=== PATIENT | male | born 1995 | race Caucasian/White ===

== ENCOUNTER 2019-12-20 17:49 | Emergency (ER) | payer OTHER, SELFPAY ==
[2019-12-20 18:23] VITALS: BP 130/77; PULSE 106; RESP 18; TEMP 37; O2SAT 98
[2019-12-20 21:01] VITALS: BP 129/88; PULSE 91; RESP 22; TEMP 36.6; O2SAT 97
--- NOTE | 2019-12-20 22:08 | ED.SKABFB ---
HPI - Skin/Abscess/Foreign Bdy General Chief complaint: Skin/Abscess/Foreign Body Stated complaint: tailbone pain Time Seen by Provider: 12/20/19 20:03 Source: patient Mode of arrival: ambulatory Limitations: no limitations History of Present Illness HPI narrative: Patient was emergency department by his friend for evaluation of suspected abscess to his tailbone. Patient reports pain and swelling to the area for the past 2 to 3 days. Patient states that he has had abscess in the area before 1 year ago and his symptoms are the same. Patient states that the area was drained and resolved without issue. He denies any fever, chills, nausea, vomiting, diarrhea or any other symptoms. Patient reports that he is allergic to penicillin. Patient denies known history of MRSA. Related Data Allergies Allergy/AdvReac Type Severity Reaction Status Date / Time Penicillins Allergy Intermediate hives Verified 12/20/19 20:48 Review of Systems Review of Systems: Narrative: CONSTITUTIONAL: Denies fever, chills, or sweats. EYES: Denies visual changes, redness, or discharge. ENT: Denies rhinorrhea, congestion, sore throat, or otalgia. CARDIOVASCULAR: Denies chest pain, palpitations, or edema. RESPIRATORY: Denies cough or dyspnea. GASTROINTESTINAL: Denies abdominal pain, nausea, vomiting, or diarrhea. GENITOURINARY: Denies dysuria or hematuria. SKIN: Reports abscess denies rash or itching. MUSCULOSKELETAL: Denies back pain, joint pain, or myalgia. NEUROLOGIC: Denies headache, numbness, dizziness, or weakness. PSYCHIATRIC: Denies anxiety or depression. [facility] Social History Social History Gender identity (if verbalized by the patient): Male Exam Narrative: Exam Narrative: GENERAL: Well-appearing, well-nourished, and in no acute distress. HEAD: Normocephalic, atraumatic. EYES: PERRLA and EOMI. ENT: Nares clear, no rhinorrhea or epistaxis. Mucous membranes moist. Oropharynx without tonsillar hypertrophy exudate or other lesions. CHEST: Clear to auscultation. No respiratory distress. ABDOMEN: Soft, nontender, nondistended, normal active bowel sounds. EXTREMITIES: Normal range of motion. No edema. SKIN: Small palpable abscess to the right inner gluteus. warm, dry, no rash. NEURO: No focal deficits. Alert and oriented x3. PSYCH: Normal mood and affect. Course Vital Signs Vital signs: Vital Signs Temperature 98.6 F 12/20/19 18:23 Pulse Rate 106 H 12/20/19 18:23 Respiratory Rate 18 12/20/19 18:23 Blood Pressure 130/77 12/20/19 18:23 Pulse Oximetry 98 12/20/19 18:23 Temperature 97.9 F 12/20/19 21:01 Pulse Rate 91 12/20/19 21:01 Respiratory Rate 22 H 12/20/19 21:01 Blood Pressure 129/88 12/20/19 21:01 Pulse Oximetry 97 12/20/19 21:01 Procedures Abscess I/D right buttock: Side (if applicable): right Local Anesthetic: lidocaine 1% Amount of anesthesia used (mL): 2 Technique: incised with #11 blade Irrigation: Yes Packing used?: iodoform I&D Results: Pus Complications: pain Abcess I&D Additional Comments: Area was drained and packed. Patient was very sensitive to pain so he was given a [place] at the conclusion of the drainage. Patient given wound care instructions follow-up instructions. MDM - Skin/Abscess/Foreign Bdy MDM Narrative Medical decision making narrative: Patient's abscess has been draining and flushed. Wound has been packed with iodoform gauze. Patient given wound care instructions and has been instructed to remove the packing in 48 to 72 hours. He has been instructed to perform sitz bath/apply warm moist compresses to encourage drainage. Patient was take Bactrim. Patient given general surgeon's contact information for follow-up. Patient directed to return to emergency department if he has any worsening or emergent symptoms. Discussed the importance of follow-up as abscesses in the gluteal area can become more complicated and require
[2019-12-20 22:49] VITALS: BP 135/63; PULSE 94; RESP 20; TEMP 36.3; O2SAT 99
== END 2019-12-20 22:49 | disposition home or self-care (01) ==
PROVIDERS: Emergency Provider Emergency Medicine
DX: L02.31 Cutaneous abscess of buttock (principal)
CPT/HCPCS: 10061; 99283; A9270

== ENCOUNTER 2020-01-19 14:10 | Emergency (ER) | payer OTHER, SELFPAY ==
[2020-01-19 14:26] VITALS: BP 163/98; PULSE 91; RESP 20; TEMP 36.7; O2SAT 100
[2020-01-19 14:52] LABS: Basophils Percent Auto 0.2 % (0.2-1.2); Hematocrit 44.4 % (42.0-52.0); Hemoglobin 15.7 g/dL (14.0-18.0); Immature Granulocyte Absolute 0.07 K/mm3 (0.00-0.031); Immature Granulocyte Percent A 0.4 % (0-0.5); Lymphocytes Absolute Auto 1.54 K/mm3 (0.9-3.2); Lymphocytes Percent Auto 9.6 % (18.3-44.2); Mean Corpuscular HGB Conc 35.4 g/dl (32-36); Mean Corpuscular Hemoglobin 31.6 pg (26-34); Mean Corpuscular Volume 89.3 fl (80-100); Mean Platelet Volume 9.7 fl (7.4-10.4); Monocytes Absolute Auto 0.6 K/mm3 (0.1-0.6); Monocytes Percent Auto 3.4 % (2.6-8.5); Neutrophils Absolute Auto 13.8 K/mm3 (1.3-6.7); Neutrophils Percent Auto 86.4 % (45.5-73.1); Platelet Count Result 303 k/mm3 (150-375); Red Blood Count 4.97 M/mm3 (4.6-6.20); Red Cell Distribution Width 12.6 % (11.5-14.5)
[2020-01-19 14:59] LABS: Alanine Aminotransferase 18 U/L (4-50); Albumin Level 4.9 g/dL (3.5-5.1); Alkaline Phosphatase 79 U/L (38-126); Anion Gap 11 mmol/L (8-16); Aspartate Amino Transferase 22 U/L (17-59); Bilirubin,Total 0.6 mg/dL (0.2-1.3); Blood Urea Nitrogen 11 mg/dL (9-20); Calcium 9.6 mg/dL (8.4-10.2); Carbon Dioxide 27 mmol/L (22-30); Chloride 102 mmol/L (98-107); Estimated CRCL calculation 150 ml/min; Estimated Glomerular Filt Rate > 60; Glucose 146 mg/dL (75-110); Lipase 16 U/L (23-300); Sodium 140 mmol/L (137-145)
--- NOTE | 2020-01-19 16:17 | PC.NURSE ---
Pt outside smoking at this time
--- NOTE | 2020-01-19 16:58 | PC.NURSE ---
Pt called to go back to a room, did not answer
== END 2020-01-19 16:23 | disposition left against medical advice (07) ==
PROVIDERS: Emergency Provider Emergency Medicine
DX: R10.9 Unspecified abdominal pain (principal)
CPT/HCPCS: 36415; 80053; 83690; 85025; 99199

== ENCOUNTER 2020-02-11 08:54 | Emergency (ER) | payer OTHER, SELFPAY ==
[2020-02-11 08:59] VITALS: BP 155/90; PULSE 109; RESP 18; TEMP 36.6; O2SAT 100
[2020-02-11] MEDS: HYDROcodone/acetaminophen (*CRX) 5-325 MG TABLET 1 TAB PO (09:27)
--- NOTE | 2020-02-11 09:42 | ED.EYEPROB ---
HPI - Eye Problem General Chief complaint: Eye Problems Stated complaint: Right Eye Time Seen by Provider: 02/11/20 09:06 History of Present Illness HPI Narrative: Patient is a 24-year-old male who presents ER with swelling around the left eye. Patient reports is been increasing over the last 2 days. No real tearing. He has had some eye drainage that is chronic for him. No runny nose/sore throat/cough. No flashers or floaters. No change in vision. Patient also has a firm area to the left cheek consistent with potentially infected gland. Related Data Home Medications Medication Instructions Recorded Confirmed No Home Medications 02/11/20 02/11/20 Allergies Allergy/AdvReac Type Severity Reaction Status Date / Time Penicillins Allergy Intermediate hives Verified 02/11/20 09:04 Review of Systems Constitutional: Constitutional: Denies chills and Denies fever(s) Eyes: Eyes: Denies change in vision and Denies photophobia ENT: Denies nasal congestion and Denies sore throat PMFSH Past Medical History Medical History (Updated 02/11/20 @ 10:10 by Jac Valenzuela MD) Healthy adult male Surgical History Surgical History (Updated 02/11/20 @ 10:08 by Jac Valenzuela MD) No history of previous surgery Social History Social History (Updated 02/11/20 @ 10:08 by Jac Valenzuela MD) Smoking status: Current every day smoker Gender identity (if verbalized by the patient): Male Exam Narrative: Exam Narrative: GENERAL: Well-appearing, well-nourished, and in no acute distress. HEAD: Normocephalic, atraumatic. EYES: PERRL and EOMI. normal appearing conjunctiva. Slight edema to the lower and upper lid laterally. SKIN: Warm, dry, no rash. Area of induration left cheek with slight superficial skin irritation. Reflects infectious process. NEURO: N Alert and oriented x3. PSYCH: Normal mood and affect. Course Course Emergency Course: Instructed to use warm compresses and apply Bactroban and take oral Keflex. Discharge home. Vital Signs Vital signs: Vital Signs Temperature 98 F 02/11/20 08:59 Pulse Rate 109 H 02/11/20 08:59 Respiratory Rate 18 02/11/20 08:59 Blood Pressure 155/90 H 11/07/20 08:59 Pulse Oximetry 100 02/11/20 08:59 Temperature 98 F 02/11/20 09:57 Pulse Rate 109 H 02/11/20 08:59 Respiratory Rate 18 02/11/20 08:59 Blood Pressure 155/90 H 02/11/20 08:59 Pulse Oximetry 100 02/11/20 08:59 Discharge Plan Discharge Clinical Impression: Cellulitis Patient Disposition: Home, Self-Care Condition: Stable Instructions: Antibiotic Form, Cellulitis (ED) Additional Instructions: Return the ER if you have worsening swelling, you cannot see, you have severe tenderness to your face, you have additional concerns. Apply warm compresses to your face to help encourage potential drainage from an infected gland. Prescriptions: New cephalexin [Keflex] 500 mg capsule 500 mg PO Q12H Qty: 14 RF: 0 mupirocin 2 % ointment 1 applic topical TID Qty: 15 RF: 0 No Action No Home Medications RF: 0 Follow-up/Referrals: Davian Allen MD [Physician] - 1 Week PHYSICIAN,OPTICIAN APPRENTICE DISPENSING [Primary Care Provider] - Stand Alone Forms: Work/School Release IP
[2020-02-11 09:57] VITALS: TEMP 36.6
== END 2020-02-11 10:18 | disposition home or self-care (01) ==
PROVIDERS: Emergency Provider Emergency Medicine
DX: L03.211 Cellulitis of face (principal); F17.200 Nicotine dependence, unspecified, uncomplicated
CPT/HCPCS: 99283; A9270

== ENCOUNTER 2020-04-22 21:41 | Emergency (ER) | payer OTHER, SELFPAY ==
[2020-04-22 21:43] VITALS: BP 137/88; PULSE 89; RESP 20; TEMP 36.3; O2SAT 99
--- NOTE | 2020-04-22 22:10 | WC.ED.TRAUMA ---
HPI - Trauma General Chief Complaint: Extremity Injury, Upper Stated Complaint: nail problem Time Seen by Provider: 04/22/20 21:46 Source: patient Mode of arrival: ambulatory Limitations: no limitations History of Present Illness HPI narrative: A 24-year-old male presents to the emergency department after getting involved in an accident while trying to split up a fight between his dog. Patient states that his thumb got caught on the kennel and somehow his nail got ripped off. Patient does endorse an exquisite amount of pain at the right thumbnail. He denies any other injuries. Related Data Home Medications Medication Instructions Recorded Confirmed No Home Medications 02/11/20 02/11/20 Allergies Allergy/AdvReac Type Severity Reaction Status Date / Time Penicillins Allergy Intermediate hives Verified 02/11/20 09:04 Review of Systems Review of Systems: Narrative: CONSTITUTIONAL: Denies fever, chills, or sweats. EYES: Denies visual changes, redness, or discharge. ENT: Denies rhinorrhea, congestion, sore throat, or otalgia. CARDIOVASCULAR: Denies chest pain, palpitations, or edema. RESPIRATORY: Denies cough or dyspnea. GASTROINTESTINAL: Denies abdominal pain, nausea, vomiting, or diarrhea. GENITOURINARY: Denies dysuria or hematuria. SKIN: Denies rash or itching. MUSCULOSKELETAL: Denies back pain, joint pain, or myalgia. Endorses significant pain at the right thumb NEUROLOGIC: Denies headache, numbness, dizziness, or weakness. PSYCHIATRIC: Denies anxiety or depression. [facility] Past Medical History Medical History Healthy adult male Surgical History Surgical History No history of previous surgery Social History Social History Smoking status: Current every day smoker Gender identity (if verbalized by the patient): Male Exam Narrative: Exam Narrative: GENERAL: Well-appearing, well-nourished, and in no acute distress. HEAD: Normocephalic, atraumatic. EYES: PERRLA and EOMI. ENT: Nares clear, no rhinorrhea or epistaxis. Mucous membranes moist. Oropharynx without tonsillar hypertrophy exudate or other lesions. Bilateral TMs pearly pemberton nonbulging NECK: Supple. No adenopathy or masses. No carotid bruits or JVD CHEST: Clear to auscultation. No respiratory distress. No wheezes rales or rhonchi HEART: Regular rate and rhythm. No murmur heard. Normal peripheral pulses. ABDOMEN: Soft, nontender, nondistended, normal active bowel sounds. EXTREMITIES: Normal range of motion. No edema. Avulsion injury of the right thumbnail, still mostly intact. SKIN: Warm, dry, no rash. NEURO: No focal deficits. Alert and oriented x3. PSYCH: Normal mood and affect. Course Vital Signs Vital signs: Vital Signs Temperature 36.3 C L 04/22/20 21:43 Pulse Rate 89 04/22/20 21:43 Respiratory Rate 20 04/22/20 21:43 Blood Pressure 137/88 04/22/20 21:43 Pulse Oximetry 99 04/22/20 21:43 Temperature 36.3 C L 04/22/20 21:43 Pulse Rate 89 04/22/20 21:43 Respiratory Rate 20 04/22/20 21:43 Blood Pressure 137/88 04/22/20 21:43 Pulse Oximetry 99 04/22/20 21:43 MDM - Trauma MDM Narrative Medical decision making narrative: In brief this is a 24-year-old who came in with a nail avulsion injury. Trephination of the nail bed did occur with little to no drainage. Surgicel was placed onto the wound followed by a nonadherent packing and Kerlix. Patient was given supplies to tender this at home. Discharge Plan Discharge Clinical Impression: Avulsion of nail Patient Disposition: Home, Self-Care Condition: Improved Instructions: Antibiotic Form, Nail Avulsion (ED) Prescriptions: No Action No Home Medications RF: 0 cephalexin [Keflex] 500 mg capsule 500 mg PO Q12H Qty: 14 RF: 0 mupirocin 2 % ointment 1 applic topic
[2020-04-22] MEDS: HYDROcodone/acetaminophen (*CRX) 5-325 MG TABLET 1 TAB PO (22:19)
== END 2020-04-22 22:26 | disposition home or self-care (01) ==
PROVIDERS: Emergency Provider Emergency Medicine
DX: S61.101A Unspecified open wound of right thumb with damage to nail, initial encounter (principal); F17.200 Nicotine dependence, unspecified, uncomplicated; W23.1XXA Caught, crushed, jammed, or pinched between stationary objects, initial encounter
CPT/HCPCS: 12001; 99283; A9270

== ENCOUNTER 2020-09-01 22:16 | Emergency (ER) | payer OTHER, SELFPAY ==
[2020-09-01 22:19] VITALS: BP 127/89; PULSE 94; RESP 17; TEMP 35.6; O2SAT 100
--- NOTE | 2020-09-01 23:07 | ED.SKABFB ---
HPI - Skin/Abscess/Foreign Bdy General Chief complaint: Skin/Abscess/Foreign Body Stated complaint: poss abcess Time Seen by Provider: 09/01/20 22:22 History of Present Illness HPI narrative: Patient is a 25-year-old male who presents ER with pain over his buttock. Has history of pilonidal cyst. Dull pain over the last 24 hours in the same spot. No fevers or chills or sweats. No drainage. No known trauma. Began taking Keflex when the pain started. Related Data Allergies Allergy/AdvReac Type Severity Reaction Status Date / Time Penicillins Allergy Intermediate hives Verified 09/01/20 22:17 Review of Systems Constitutional: Constitutional: Denies chills and Denies fever(s) Gastrointestinal: Gastrointestinal: Denies abdominal pain, Denies constipation, Denies nausea and Denies vomiting Integumentary/Breasts: Comments: Bilateral abscess PMFSH Past Medical History Medical History Healthy adult male Surgical History Surgical History No history of previous surgery Social History Social History Smoking status: Current every day smoker Gender identity (if verbalized by the patient): Male Exam Narrative: Exam Narrative: GENERAL: Well-appearing, well-nourished, and in no acute distress. HEAD: Normocephalic, atraumatic. EXTREMITIES: Normal range of motion. No edema. SKIN: Warm, dry, no rash. Pilonidal cyst at the gluteal cleft without surrounding cellulitis. NEURO: No focal deficits. Alert and oriented x3. PSYCH: Normal mood and affect. Course Course Emergency Course: We will have patient finish home Keflex and will give him a few additional days. Follow-up with general surgery for cyst excision. Vital Signs Vital signs: Vital Signs Temperature 96.1 F L 09/01/20 22:19 Pulse Rate 94 09/01/20 22:19 Respiratory Rate 17 09/01/20 22:19 Blood Pressure 127/89 09/01/20 22:19 Pulse Oximetry 100 09/01/20 22:19 Temperature 96.1 F L 09/01/20 22:19 Pulse Rate 94 09/01/20 22:19 Respiratory Rate 17 09/01/20 22:19 Blood Pressure 127/89 09/01/20 22:19 Pulse Oximetry 100 09/01/20 22:19 Procedures Abscess I/D pilonidal cyst: Date of Incision: 09/01/20 Time of Incision: 23:00 Local Anesthetic: lidocaine 1% and with epi Amount of anesthesia used (mL): 6 Technique: incised with #11 blade Irrigation: No Packing used?: iodoform I&D Results: Pus Discharge Plan Discharge Clinical Impression: Chronic recurrent pilonidal cyst Patient Disposition: Home, Self-Care Condition: Stable Instructions: Antibiotic Form, Pilonidal Cyst (ED), Abscess (ED) Additional Instructions: Return to the ER if you have fever over 100.4 ?F, you have increased pain, you cannot keep down food or water. Remove your packing in 2 days. Prescriptions: New hydrocodone-acetaminophen 5-325 mg tablet 1 tablet PO Q6H PRN (Reason: pain) Qty: 14 RF: 0 cephalexin 500 mg capsule 500 mg PO Q12H Qty: 10 RF: 0 Follow-up/Referrals: Cathie Chang MD [Physician] - 1 Week PHYSICIAN,AIRCRAFT INSTRUMENT REPAIRER [Primary Care Provider] -
[2020-09-01 23:38] VITALS: BP 121/76; PULSE 78; RESP 16; TEMP 36.7; O2SAT 99
== END 2020-09-01 23:38 | disposition home or self-care (01) ==
PROVIDERS: Emergency Provider Emergency Medicine
DX: L05.91 Pilonidal cyst without abscess (principal); F17.200 Nicotine dependence, unspecified, uncomplicated
CPT/HCPCS: 10080; 99283

== ENCOUNTER 2020-11-24 00:05 | Emergency (ER) | payer OTHER, SELFPAY ==
[2020-11-24 00:08] VITALS: BP 141/86; PULSE 77; RESP 16; TEMP 36.3; O2SAT 99
[2020-11-24] MEDS: ERYTHROMYCIN OPHTH OINTMENT 1 GM TUBE 1 APPLIC LEFT EYE (03:07)
--- NOTE | 2020-11-24 04:01 | ED.EYEPROB ---
HPI - Eye Problem General Chief complaint: Eye Problems Stated complaint: L eye foreign body Time Seen by Provider: 11/24/20 02:03 History of Present Illness HPI Narrative: Patient is a 25-year-old male who presents ER with left eye pain. Reports symptoms began just prior to arrival. Feels like when he has had a foreign body in his eye previously. He thinks he sees something over his left cornea. Reports tearing and blurred vision. 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 He reports ever since previous foreign body he always wears eye protection. Related Data Allergies Allergy/AdvReac Type Severity Reaction Status Date / Time Penicillins Allergy Intermediate hives Verified 11/24/20 01:59 Review of Systems Eyes: Comments: Left eye pain, foreign body sensation, blurred vision, tearing. ENT: Denies nasal congestion and Denies sore throat Gastrointestinal: Gastrointestinal: Denies nausea and Denies vomiting [facility] Past Medical History Medical History Healthy adult male Surgical History Surgical History No history of previous surgery Social History Social History Smoking status: Current every day smoker Gender identity (if verbalized by the patient): Male Exam Narrative: GENERAL: Well-appearing, well-nourished, and in no acute distress. HEAD: Normocephalic, atraumatic. EYES: PERRL and EOMI. foreign body in the left cornea at the 9 o'clock position. Removed with 18-gauge. Rust ring remains. Eyelid eversion performed and no foreign body noted. ENT: Mucous membranes moist. NEURO: Alert and oriented x3. PSYCH: Normal mood and affect. Course Course Emergency Course: Vision normalized after foreign body removal. Recommend follow-up with ophthalmology for further evaluation and removal restroom. Patient verbalized understanding of this. Provided with erythromycin ophthalmic and educated on its use. Vital Signs Vital signs: Vital Signs Temperature 97.4 F L 11/24/20 00:08 Pulse Rate 77 11/24/20 00:08 Respiratory Rate 16 11/24/20 00:08 Blood Pressure 141/86 H 11/24/20 00:08 Pulse Oximetry 99 11/24/20 00:08 Temperature 97.4 F L 11/24/20 00:08 Pulse Rate 82 11/24/20 04:20 Respiratory Rate 16 11/24/20 04:20 Blood Pressure 135/80 11/24/20 04:20 Pulse Oximetry 100 11/24/20 04:20 Discharge Plan Discharge Clinical Impression: Acute foreign body of left cornea, Corneal rust ring of left eye Patient Disposition: Home, Self-Care Condition: Stable Instructions: Antibiotic Form, Corneal Abrasion (DC), Eye Foreign Body (ED) Additional Instructions: Contact an eye doctor for further treatment evaluation. You have a small rust ring left over from the removal of a metallic foreign body. You have been given erythromycin ophthalmic to help prevent infection. Use this every 6 hours in your left eye. ER if you are worsening pain in your eye, you cannot see, you have thick discharge from your eye, or you have other concerns. Prescriptions: New erythromycin 5 mg/gram (0.5 %) ointment 0.5 inch LEFT EYE QID Qty: 3.5 RF: 0 hydrocodone-acetaminophen 5-325 mg tablet 1 tablet PO Q6H PRN (Reason: pain) Qty: 8 RF: 0 No Action hydrocodone-acetaminophen 5-325 mg tablet 1 tablet PO Q6H PRN (Reason: pain) Qty: 14 RF: 0 cephalexin 500 mg capsule 500 mg PO Q12H Qty: 10 RF: 0 Follow-up/Referrals: PHYSICIAN,SOURCING ASSISTANT [Primary Care Provider] -
[2020-11-24 04:20] VITALS: BP 135/80; PULSE 82; RESP 16; O2SAT 100
== END 2020-11-24 04:15 | disposition home or self-care (01) ==
PROVIDERS: Emergency Provider Emergency Medicine
DX: T15.02XA Foreign body in cornea, left eye, initial encounter (principal); F17.200 Nicotine dependence, unspecified, uncomplicated
CPT/HCPCS: 65220; 99283; A9270

== ENCOUNTER 2021-03-03 08:44 | Emergency (ER) | payer OTHER, SELFPAY ==
[2021-03-03 09:00] VITALS: BP 118/75; PULSE 88; RESP 16; TEMP 36.6; O2SAT 98
--- NOTE | 2021-03-03 09:58 | ED.EYEPROB ---
HPI - Eye Problem General Chief complaint: Eye Problems Stated complaint: FB in eye Source: patient Mode of arrival: ambulatory Limitations: no limitations History of Present Illness HPI Narrative: Possible foreign body right thigh yesterday chief complaint: foreign body Related Data Allergies Allergy/AdvReac Type Severity Reaction Status Date / Time Penicillins Allergy Intermediate hives Verified 11/24/20 01:59 Review of Systems Review of Systems: CONSTITUTIONAL: Denies fever, chills, or sweats. EYES: Denies visual changes, redness, or discharge. ENT: Denies rhinorrhea, congestion, sore throat, or otalgia. CARDIOVASCULAR: Denies chest pain, palpitations, or edema. RESPIRATORY: Denies cough or dyspnea. GASTROINTESTINAL: Denies abdominal pain, nausea, vomiting, or diarrhea. GENITOURINARY: Denies dysuria or hematuria. SKIN: Denies rash or itching. MUSCULOSKELETAL: Denies back pain, joint pain, or myalgia. NEUROLOGIC: Denies headache, numbness, or weakness. PSYCHIATRIC: Denies anxiety or depression. PMFSH Past Medical History Medical History Healthy adult male Surgical History Surgical History No history of previous surgery Social History Social History Smoking status: Current every day smoker Gender identity (if verbalized by the patient): Male Exam Narrative: General appearance: Well-developed, well-nourished Skin: Normal color Head: Normocephalic, nontraumatic Eyes: Clear conjunctiva, a tiny foreign body at the cornea. ENT: Oropharynx normal, ears normal, nose normal Neck: Supple, nontender Chest and respiratory: Airway patent, no respiratory distress, no accessory muscle use Heart: Regular rate/rhythm Neurologic: Alert and oriented ?3, RENAL DIETITIAN is normal as tested, no gross motor deficit Course Course Emergency Course: Stable Vital Signs Vital signs: Vital Signs Temperature 36.6 C 03/03/21 09:00 Pulse Rate 88 03/03/21 09:00 Respiratory Rate 16 03/03/21 09:00 Blood Pressure 118/75 03/03/21 09:00 Pulse Oximetry 98 03/03/21 09:00 Temperature 36.6 C 03/03/21 09:00 Pulse Rate 88 03/03/21 09:00 Respiratory Rate 16 03/03/21 09:00 Blood Pressure 118/75 03/03/21 09:00 Pulse Oximetry 98 03/03/21 09:00 Procedures FB Removal Eye Foreign Body #1: Foreign Body Removal Date: 03/03/21 Foreign Body Removal Time: 10:17 Time Out performed: Yes Location: eye (R) Topical anesthetic used: tetracaine Foreign body: other (Not sure) Evidence of corneal penetration: No Technique: cotton tip swab and needle Procedure performed under: direct visualization with magnification Post-procedure medication: ophthalmic antibiotic Patient tolerated procedure: well Foreign Body Removal Narrative: Less than 1 mm foreign body removed completely, was superficial, nothing under the eyelids MDM - Eye Problem MDM Narrative Medical decision making narrative: Right eye foreign body Critical Care Time Critical Care Time Critical Care Time: No Discharge Plan Discharge Clinical Impression: Eye foreign body Qualifiers: Encounter type: subsequent encounter Laterality: right Qualified Code(s): T15.91XD - Foreign body on external eye, part unspecified, right eye, subsequent encounter Patient Disposition: Home, Self-Care Condition: Improved Instructions: Antibiotic Form, Eye Foreign Body (ED) Additional Instructions: Return if symptoms are worsening , call your family physician fo
== END 2021-03-03 10:16 | disposition home or self-care (01) ==
PROVIDERS: Emergency Provider Emergency Medicine
DX: T15.01XA Foreign body in cornea, right eye, initial encounter (principal)
CPT/HCPCS: 65220; 99283; A9270

== ENCOUNTER 2021-04-01 13:29 | Emergency (ER) | payer OTHER, SELFPAY ==
--- NOTE | ~2021-04-01 | XR_ITS ---
EXAMINATION: XR femur RT min 2V EXAM DATE: 04/01/2021 14:36 INDICATION: nail gun accident . TECHNIQUE: Right femur frontal and lateral projections of the proximal aspect, frontal and lateral pr ojections of the lower aspect for review. There is no prior study for comparison. FINDINGS: There is a nail with its distal half overlying the right femoral distal metaphysis on bot h frontal and lateral projections, may well be embedded in the bone. Skin is stented inward. No other radiopaque foreign bodies. IMPRESSION: Nail with tip probably embedded in the right femoral distal metaphysis. Reviewed, dictated and finalized at location B. N [employer] SUPERVISOR IMPRESSION: Nail with tip probably embedded in the right femoral distal metaph ysis.
[2021-04-01 13:42] VITALS: BP 156/104; PULSE 87; RESP 16; TEMP 37; O2SAT 99
[2021-04-01] MEDS: MORPHINE SULFATE INJ (*CRX) 10 MG/ML AMP 4 MG IM (14:26)
[2021-04-01 16:05] VITALS: BP 142/89; PULSE 89; RESP 16; O2SAT 97
[2021-04-01] MEDS: HYDROmorphone HCL INJ (*CRX) 1 MG/ML SYR 0.5 MG IV PUSH (16:09)
[2021-04-01] MEDS: ceFAZolin 2 GM/D5W 50 ML 2 GM/50 ML BAG IVPB (16:12)
--- NOTE | 2021-04-01 17:50 | P.CONOP_ITS ---
Assessment and Plan Assessment and plan (1) Foreign body: Status: Acute (2) Puncture wound of right thigh: Qualifiers: Encounter type: initial encounter Qualified Code(s): S71.131A - Puncture wound without foreign body, right thigh, initial encounter Code(s): S71.131A - Puncture wound without foreign body, right thigh, initial encounter Status: Acute Assessment and Plan: Acute foreign body penetrating injury with nail gun. Nail impaled the distal fe moral bone at the anteromedial aspect through the vastus medialis. I reviewed the images personally. 20 mL of 1% lidocaine injected for field block around the nail head. Vice associate director regulatory affairs applied to the nail head, and the nail removed with moderate force. A small amount of sunil jesustia material remained under the head of the nail. Patient tolerated the procedure well. Mild bloody drainage controlled with pressure dressing. Malcom bandage applied. Patient will be treated with oral antibiotics per the emergency room discretion. Follow up in 1-2 weeks in clinic. Symptoms and signs of infection reviewed with the patient. History of Present Illness HPI Consult date: 04/01/21 Chief complaint: nail in leg Narrative: Patient complains of focal pain at the distal medial thigh. Shot himself with a nail gun today. Attempted to remove on his own without success. Was wearing jeans. No other known contamination. Denies numbness tingling, or other associated symptoms. Review of Systems Review of Systems: Denies loss of consciousness. All systems reviewed & are unremarkable except as noted in HPI and below PMFSH Past Medical History Medical History Healthy adult male Surgical History Surgical History No history of previous surgery Social History Social History Smoking status: Current every day smoker Gender identity (if verbalized by the patient): Male Meds Home Medications and Allergies Allergies Allergy/AdvReac Type Severity Reaction Status Date / Time Penicillins Allergy Intermediate hives Verified 04/01/21 14:07 Vital Signs Vital Signs - 24 hr 04/01/21 13:42 04/01/21 16:05 Temperature 37.0 C Pulse Rate 87 89 Respiratory Rate 16 16 Blood Pressure 156/104 H 142/89 H Pulse Oximetry 99 97 Exam Narrative: Appears uncomfortable. Alert oriented x3. Vital signs stable. Unlabored breathing. Afebrile. Nail head visible tenting the skin downward at the area of the vastus medialis. No erythema, or drainage. Distal neurovascular status normal. No edema. Eyes: General: appearance normal, both eyes and all related structures Resp: Effort & Inspection: normal respiratory effort Neuro: Speech: normal speech Other: Wiggles toes well. Capillary refill brisk. Distal light touch sensation intact. Dorsalis pedis pulse palpable. Extrem: Other: No edema. Psych: Mental Status: mental status grossly normal Results Labs Labs: All other labs normal.
--- NOTE | 2021-04-01 17:54 | PM.OP ---
Procedure Note - Brief Procedure Note - Brief Date of procedure: 04/01/21 Pre-op diagnosis: nail in leg Post-op diagnosis: same Procedure performed: Removal of a nail impaled in the distal femur. Description of procedure: Area of the nail and skin prepared with Betadine. 20 mL of 1% lidocaine injected for field block around the nail head. Vice community association manager applied to the nail head, and the nail removed with moderate force. A small amount of sunil jesusita material remained under the head of the nail. The skin appeared clean. Patient tolerated the procedure well. Mild bloody drainage controlled with pressure dressing. Malcom bandage applied. Neurovascular status intact. Anesthesia: local Surgeon: Emrey Kennedy MD Estimated blood loss (mL): 2 Packing: No Pathology: none sent Complications: No immediate complications Condition: stable Disposition: other (discharge from E.D.)
--- NOTE | 2021-04-01 18:13 | ED.GENADULT ---
HPI - General Adult General Chief complaint: Skin/Abscess/Foreign Body Stated complaint: nail in leg Time Seen by Provider: 04/01/21 14:10 Source: patient Mode of arrival: ambulatory Limitations: no limitations History of Present Illness HPI narrative: Patient is 25-year-old male with chief complaint of nail injury to the distal aspect of his right femur that he sustained approximately 1 PM while using a nail gun. Patient reports that he has pain to the area. He reports radiating pain down his leg. Patient reports he is up-to-date on his Tdap. Patient denies any acute injuries or concerns. Patient is allergic to penicillin. Related Data Allergies Allergy/AdvReac Type Severity Reaction Status Date / Time Penicillins Allergy Intermediate hives Verified 04/01/21 14:07 Review of Systems Review of Systems: CONSTITUTIONAL: Denies fever, chills, or sweats. EYES: Denies visual changes, redness, or discharge. ENT: Denies rhinorrhea, congestion, sore throat, or otalgia. CARDIOVASCULAR: Denies chest pain, palpitations, or edema. RESPIRATORY: Denies cough or dyspnea. GASTROINTESTINAL: Denies abdominal pain, nausea, vomiting, or diarrhea. GENITOURINARY: Denies dysuria or hematuria. SKIN: Denies rash or itching. MUSCULOSKELETAL: Reports right thigh injury with foreign body denies back pain, joint pain, or myalgia. NEUROLOGIC: Denies headache, numbness, dizziness, or weakness. PSYCHIATRIC: Denies anxiety or depression. PMFSH Past Medical History Medical History Healthy adult male Surgical History Surgical History No history of previous surgery Social History Social History Smoking status: Current every day smoker Gender identity (if verbalized by the patient): Male Exam Narrative: GENERAL: Well-appearing, well-nourished,uncomfortable. Unkempt. HEAD: Normocephalic, atraumatic. EYES: PERRLA and EOMI. CHEST: Clear to auscultation. No respiratory distress. No wheezes rales or rhonchi HEART: Regular rate and rhythm. No murmur heard. Normal peripheral pulses. EXTREMITIES: Nail inbedded in distal right femur causing deep dimpling of the skin. Dirt noted around it. Cap refill and pulses noted distally. SKIN: Warm, dry, no rash. NEURO: No focal deficits. Alert and oriented x3. PSYCH: Anxious mood and affect. Course Vital Signs Vital signs: Vital Signs Temperature 98.6 F 04/01/21 13:42 Pulse Rate 87 04/01/21 13:42 Respiratory Rate 16 04/01/21 13:42 Blood Pressure 156/104 H 04/01/21 13:42 Pulse Oximetry 99 04/01/21 13:42 Temperature 98.6 F 04/01/21 13:42 Pulse Rate 89 04/01/21 16:05 Respiratory Rate 16 04/01/21 16:05 Blood Pressure 142/89 H 04/01/21 16:05 Pulse Oximetry 97 04/01/21 16:05 Medical Decision Making MDM Narrative Medical decision making narrative: Dr. Kennedy came to emergency department to remove nail from patient's femur. The nail appears to be removed in its entirety. Dr. Kennedy request the patient be put on antibiotic that will cover test due to the foreign body. Patient will be placed on Cipro due to his allergy to penicillins making Augmentin appropriate. Patient has had a pressure bandage and Malcom wrap applied to the wound site. He is not having profuse bleeding. Patient instructed to follow-up with Dr. Kennedy within 1 week. Patient instructed to return to emergency department if he has any worsening or emergent symptoms or signs of infection. Vital Signs Vital Signs: Vital Signs Temperature 98.6 F 04/01/21 13:42 Pulse Rate 87 04/01/21 13:42 Respiratory Rate 16 04/01/21 13:42 Blood Pressure 156/104 H 04/01/21 13:42 Pulse Oximetry 99 04/01/21 13:42 Temperature 98.6 F 04/01/21 13:42 Pulse Rate 89 04/01/21 16:05 Respiratory Rate 16 04/01/21 16:05 Blood Pressu
--- NOTE | 2021-04-04 11:26 | PC.NURSE ---
LATE ENTRY This note is being entered to document information to the patient's record. The following information was omitted on [04/01/21], by [MIRIAM Ng] [facility] START [address] END 2680.
== END 2021-04-01 17:45 | disposition home or self-care (01) ==
PROVIDERS: Emergency Provider Emergency Medicine
DX: S71.141A Puncture wound with foreign body, right thigh, initial encounter (principal); F17.200 Nicotine dependence, unspecified, uncomplicated; W29.4XXA Contact with nail gun, initial encounter
CPT/HCPCS: 11750; 73552; 96365; 96372; 96375; 99284; J0690; J1170; J2270

== ENCOUNTER 2021-09-24 20:38 | Emergency (ER) | payer OTHER, SELFPAY ==
--- NOTE | ~2021-09-24 | CT_ITS ---
EXAMINATION: CT brain wo con DATE: 09/24/2021 21:31 INDICATION: transmission fell on him . TECHNIQUE: Computed tomography (CT) of the head was performed without intravenous contrast. The mA wa s adjusted according to patient size. Iterative reconstruction technique was employed. The dose-lengt h product was 605.33 mGy-cm. COMPARISON: None FINDINGS: No acute intracranial hemorrhage or extra-axial fluid collection. No hydrocephalus, mass, or herniation. No acute ischemic infarct. Unremarkable dural venous sinus attenuation. No acute osseous abnormality. Small left frontal scalp contusion. Frontal sinuses is not aerated. Under pneumatized bilateral mastoid air cells, with minimal left mast oid fluid, otherwise the aerated spaces are clear. IMPRESSION: No acute intracranial process. Reviewed, dictated and finalized at location K.
--- NOTE | ~2021-09-24 | XR_ITS ---
EXAM: XR hand RT min 3V DATE: 09/24/2021 21:26 HISTORY: transmission fell ON PATIENT . COMPARISON: None available. FINDINGS: Normal mineralization. No fracture or dislocation. No lytic or blastic lesion. Joint space s are maintained. No erosion or periosteal change. Soft tissue irregularity and debris over the right third digit at the level of the middle phalange. IMPRESSION: No acute osseous finding in the right hand. Right third digit laceration with debris. Reviewed, dictated and finalized at location K. IMPRESSION: No acute osseous finding in the right hand. Right third digit lacer ation with debris.
--- NOTE | ~2021-09-24 | CT_ITS ---
EXAMINATION: CT facial bones wo con DATE: 09/24/2021 21:32 INDICATION: transmission fell on him . TECHNIQUE: Computed tomography (CT) of the facial bones and maxillofacial region was performed withou t intravenous contrast. Automated exposure control and iterative reconstruction technique were employ ed. The dose-length product was 265.31 mGy-cm. COMPARISON: None. FINDINGS: Soft Tissues: Possible swelling over the anterior jaw, otherwise no significant superficial soft tis cb swelling. Facial bones: No acute fracture. No lytic or blastic process. Chronic leftward bowing and posterior spur at the osseous nasal septum. Eyes: The globes are intact. The soft tissue planes of the orbits are maintained. Paranasal Sinuses: Inferior bilateral maxillary mucosal thickening, with small retention cysts or po lyps. Mucosal thickening occludes the right ostiomeatal unit. Foreign Bodies: No radiopaque foreign bodies. Other Findings: Periodontal disease. IMPRESSION: No evidence of acute facial bone fracture. Reviewed, dictated and finalized at location K.
[2021-09-24 21:07] VITALS: BP 132/84; PULSE 93; RESP 16; TEMP 36.9; O2SAT 98
--- NOTE | 2021-09-25 01:51 | ED.WOUNDLAC ---
HPI - Wound/Laceration General Chief Complaint: Wound/Laceration <SRINIVASA Artis Last Filed: 09/25/21 04:11> Stated Complaint: lac to head right middle finger lac <SRINIVASA Artis Last Filed: 09/25/21 04:11> Time Seen by Provider: 09/25/21 01:44 <SRINIVASA Artis Last Filed: 09/25/21 04:11> History of Present Illness HPI narrative: Patient is a 26-year-old male who presents emergency department with a laceration to his right third digit and an abrasion to his forehead sustained earlier today. Patient was working under a car on the transmission and caught the car from falling on top of him with his hands. Since then he has complained of pain to the site and also notes that he has numbness to his fingertips on the right third digit with difficulty moving the finger. denies headache, loss of consciousness, visual changes, nausea, vomiting. <SRINIVASA Artis Last Filed: 09/25/21 04:11> Related Data Allergies/Adverse Reactions: Allergies Allergy/AdvReac Type Severity Reaction Status Date / Time Penicillins Allergy Intermediate hives Verified 09/24/21 21:10 <Tori Espana PA-C - Last Filed: 09/25/21 04:11> Review of Systems Review of Systems: Gen: Denies fevers or chills Eyes: Denies eye pain or visual change ENT: Denies congestion Respiratory: Denies shortness of breath or cough CV: Denies chest pain or palpitations GI: Denies abdominal pain nausea, emesis or diarrhea denies burning, urgency, frequency or hematuria Musculoskeletal: Denies back pain or muscle pain Neuro: Reports numbness to right third fingertip Skin: Reports laceration to right third digit and forehead. Except as documented, all other systems reviewed and negative <SRINIVASA Artis Last Filed: 09/25/21 04:11> PMFSH Past Medical History Medical History: Medical History Healthy adult male <Tori Bethel Espana PA-C - Last Filed: 09/25/21 04:11> Surgical History Surgical History: Surgical History No history of previous surgery <Tori Bethel Espana PA-C - Last Filed: 09/25/21 04:11> Social History Social History: Social History Smoking status: Current every day smoker Gender identity (if verbalized by the patient): Male <Tori Bethel Espana PA-C - Last Filed: 09/25/21 04:11> Exam Narrative: APPEARANCE: Well appearing, no pain in distress, well-nourished. Head: Normocephalic and atraumatic. EYES: PERRLA/EOMI, conjunctivae clear NOSE: No nasal drainage EARS: External ear normal in appearance THROAT: Oropharynx is clear. Mucous membranes are moist. NECK: Supple. No adenopathy, no masses. RESPIRATORY: Airway patent, respirations nonlabored. Clear to auscultation bilaterally, no rales, rhonchi, wheezing. CARDIOVASCULAR: Regular rate and rhythm without murmurs, rubs, or gallops. ABDOMINAL: Normoactive bowel sounds. Soft, nontender, nondistended. No rebound tenderness or guarding. MUSCULOSKELETAL: Brisk capillary refill distal to injury. Patient states he has no sensation over fingertip of right third digit. Unable to move tip of finger. NEURO: Normal speech. No focal neurologic deficits. SKIN: Patient has a 2 cm, deep, L-shaped irregular laceration to the palmar aspect of his right third digit just proximal to the DIP with no active bleeding. Wound inspected under direct bright light with no evidence of muscle tendon laceration. Hands are dirty and soiled with oil. PSYCHIATRIC: Normal affect/mood. <Tori Espana PA-C - Last Filed: 09/25/21 04:11> Course [employer]/PA Physician Supervision For this patient encounter, I reviewed the [employer]DER[employer] or PA documentation, treatment plan, and medical decision making <Sheldon Garces MD - Last Filed: 09/25/21
[2021-09-25 02:30] VITALS: BP 160/85; PULSE 72; RESP 18; O2SAT 99
[2021-09-25] MEDS: CEPHALEXIN 500 MG CAPSULE PO (03:39)
== END 2021-09-25 03:45 | disposition home or self-care (01) ==
LOC: ANHED 09-25 03:29
PROVIDERS: Emergency Provider Emergency Medicine
DX: S61.212A Laceration without foreign body of right middle finger without damage to nail, initial encounter (principal); F17.200 Nicotine dependence, unspecified, uncomplicated; S00.81XA Abrasion of other part of head, initial encounter; W26.8XXA Contact with other sharp object(s), not elsewhere classified, initial encounter
CPT/HCPCS: 12001; 70450; 70486; 73130; 99284; A9270

== ENCOUNTER 2022-01-15 16:44 | Emergency (ER) | payer OTHER, SELFPAY ==
--- NOTE | ~2022-01-15 | XR_ITS ---
EXAMINATION: XR chest 2V DATE: 01/15/2022 17:30 INDICATION: Cough and shortness of breath TECHNIQUE: PA and lateral views of the chest are obtained. COMPARISON: None available FINDINGS: The lungs are free of acute opacities. No pleural effusion or pneumothorax. The cardiomedia stinal silhouette is normal. There is mild thoracic spondylosis. IMPRESSION: 1. No acute cardiopulmonary abnormality. Reviewed, dictated and finalized at location A.
[2022-01-15 16:47] VITALS: BP 152/87; PULSE 98; RESP 20; TEMP 36.2; O2SAT 99
--- NOTE | 2022-01-15 17:27 | ED.GENADULT ---
HPI - General Adult General Chief complaint: Upper Respiratory Infection Stated complaint: uri symptoms since fri 11pm Time Seen by Provider: 01/15/22 16:51 History of Present Illness HPI narrative: 26-year-old male presents the emergency room for multiple complaints. Patient has been experiencing headache and diarrhea for 4days, that he states is progressively getting worse. States that he was seen at [place] emergency room 3 days ago and was diagnosed with upper respiratory infection. Patient states he has developed shortness of breath, wheezing, postnasal drip sinus congestion. Patient denies fever or body aches. Patient states that he has taken ibuprofen once since the onset of symptoms. Related Data Allergies Allergy/AdvReac Type Severity Reaction Status Date / Time Penicillins Allergy Intermediate hives Verified 09/24/21 21:10 Review of Systems Review of Systems: CONSTITUTIONAL: Denies fever, chills, or sweats. EYES: Denies visual changes, redness, or discharge. ENT: Reports rhinorrhea, congestion, sore throat, CARDIOVASCULAR: Denies chest pain, palpitations, or edema. RESPIRATORY: Reports cough or dyspnea. GASTROINTESTINAL: Reports diarrhea GENITOURINARY: Denies dysuria or hematuria. SKIN: Denies rash or itching. MUSCULOSKELETAL: Denies back pain, joint pain, or myalgia. NEUROLOGIC: Reports headache PSYCHIATRIC: Denies anxiety or depression. [facility] Past Medical History Medical History Healthy adult male Surgical History Surgical History No history of previous surgery Social History Social History Smoking status: Current every day smoker Gender identity (if verbalized by the patient): Male Exam Narrative: GENERAL: Well-appearing, well-nourished, no physical limitations, and in no acute distress. HEAD: Normocephalic, atraumatic. EYES: Conjunctivae normal, PERRLA and EOMI. ENT: External nose normal, Nares clear, no rhinorrhea or epistaxis. Mucous membranes moist. Oropharynx without tonsillar hypertrophy exudate or other lesions. External ears normal, bilateral TMs normal bilaterally NECK: Supple. No meningeal signs. No adenopathy or masses. No carotid bruits or JVD CHEST: Inspiratory wheezing HEART: Regular rate and rhythm. No murmur heard. Normal peripheral pulses. ABDOMEN: Soft, nontender, nondistended, normal active bowel sounds. EXTREMITIES: Normal range of motion. No edema. No clubbing or cyanosis SKIN: Warm, dry, no rash. No noted wounds NEURO: No focal deficits. Alert and oriented x3. MAEW. CN's II-XI intact bilaterally, normal gait PSYCH: Cooperative. Normal mood and affect. Course Vital Signs Vital signs: Vital Signs Temperature 36.2 C L 01/15/22 16:47 Pulse Rate 98 01/15/22 16:47 Respiratory Rate 20 01/15/22 16:47 Blood Pressure 152/87 H 01/15/22 16:47 Pulse Oximetry 99 01/15/22 16:47 Oxygen Delivery Room Air 01/15/22 16:47 Temperature 36.2 C L 01/15/22 16:47 Pulse Rate 98 01/15/22 17:32 Respiratory Rate 20 01/15/22 17:32 Blood Pressure 152/87 H 01/15/22 16:47 Pulse Oximetry 99 01/15/22 17:30 Oxygen Delivery Room Air 01/15/22 17:30 Medical Decision Making Vital Signs Vital Signs: Vital Signs Temperature 36.2 C L 01/15/22 16:47 Pulse Rate 98 01/15/22 16:47 Respiratory Rate 20 01/15/22 16:47 Blood Pressure 152/87 H 01/15/22 16:47 Pulse Oximetry 99 01/15/22 16:47 Oxygen Delivery Room Air 01/15/22 16:47 Temperature 36.2 C L 01/15/22 16:47 Pulse Rate 98 01/15/22 17:32 Respiratory Rate 20 01/15/22 17:32 Blood Pressure 152/87 H 01/15/22 16:47 Pulse Oximetry 99 01/15/22 17:30 Oxygen Delivery Room Air 01/15/22 17:30 Lab Data Result diagrams: 01/15/22 17:44 Labs: Lab Results 01/15/22 Range/Units 17:44 W
[2022-01-15 17:30] VITALS: O2SAT 99
[2022-01-15 17:32] VITALS: PULSE 98; RESP 20
[2022-01-15] MEDS: ALBUTEROL SULFATE NEB 2.5 MG/3 ML INH INHALATION (17:33)
[2022-01-15] MEDS: IPRATROPIUM BR 0.02% INH SOLN 0.5 MG/2.5 ML VIAL INHALATION (17:33)
[2022-01-15] MEDS: SODIUM CHLORIDE 0.9% IV 1,000 ML 999 ML IV CONT (17:41)
[2022-01-15] MEDS: KETOROLAC 30 MG/ML VIAL (*BKC) IV PUSH (17:42)
[2022-01-15 17:50] LABS: Basophils Percent Auto 0.1 % (0.2-1.2); Eosinophils Absolute Auto 0.2 K/mm3 (0-0.3); Eosinophils Percent Auto 2.2 % (0-4.4); Hematocrit 46.4 % (42.0-52.0); Hemoglobin 15.7 g/dL (14.0-18.0); Immature Granulocyte Absolute 0.03 K/mm3 (0.00-0.031); Immature Granulocyte Percent A 0.3 % (0-0.5); Lymphocytes Absolute Auto 2.72 K/mm3 (0.9-3.2); Lymphocytes Percent Auto 27.1 % (18.3-44.2); Mean Corpuscular HGB Conc 33.8 g/dl (32-36); Mean Corpuscular Hemoglobin 31.6 pg (26-34); Mean Corpuscular Volume 93.4 fl (80-100); Mean Platelet Volume 9.5 fl (7.4-10.4); Monocytes Absolute Auto 0.8 K/mm3 (0.1-0.6); Monocytes Percent Auto 8.1 % (2.6-8.5); Neutrophils Absolute Auto 6.3 K/mm3 (1.3-6.7); Neutrophils Percent Auto 62.2 % (45.5-73.1); Platelet Count Result 243 k/mm3 (150-375); Red Blood Count 4.97 M/mm3 (4.6-6.20); Red Cell Distribution Width 12.6 % (11.5-14.5); White Blood Count 10.1 K/mm3 (4.5-10.0)
[2022-01-15 19:00] VITALS: BP 118/66; PULSE 74; RESP 14; O2SAT 99
== END 2022-01-15 19:00 | disposition home or self-care (01) ==
PROVIDERS: Emergency Provider Nurse Practitioner Family
DX: J06.9 Acute upper respiratory infection, unspecified (principal); F17.200 Nicotine dependence, unspecified, uncomplicated
CPT/HCPCS: 36415; 71046; 85025; 94640; 96361; 96374; 96375; 99284; J1100; J1885; J7030

== ENCOUNTER 2024-07-27 08:33 | Outpatient (CLI) | payer OTHER, SELFPAY ==
--- OUTSIDE RECORDS SUMMARY | 2024-07-27 09:02 | XMS_ITS | Continuity of Care Document ---
Author Organization [facility] Address [address] [place] [address] Phone Care Team Providers Care Test Inspection Engineer Name Role Phone Worrell OD, Huseyin Unavailable Unavailable Advance Directives Directive Yes / No Effective Date File Name No Information Encounters Encounter Description Practice Location Reason(s) For Visit Diagnoses Date Provider Providers Copied on Encounter [facility], [address] [place], [place], [id number], [place] tel:[phone] No Information Mar-1 5-200 6 Worrell OD Huseyin. [address], [place], [address], [place]. tel:[phone] Family History Family Member Type Diagnosis Age At Onset No Information Payers Payer name Insurance type Covered green party ID Authoriza tion(s) Medicaid [facility] [id number] Social History Type Description Quantity Date Captured Comments Sex Male Smoking Status No Information Chief Complaint And Reason For Visit No Information Reason For Referral Reason For Referral No Information History Of Present Illness Encounter Date Complaint History Of Prese nt Illness No Information Functional Status Date Functional Assessmen t No Information Instructions Date Instruction Additional Infor mation No Information Assessments Type Assessment Date No Information Patient Care Teams Name Effective Dates (start - stop) Status Members No Information
[2024-07-27 09:06] LABS: Basophils Percent Auto 0.2 % (0.2-1.2); Eosinophils Absolute Auto 0.2 K/mm3 (0-0.3); Eosinophils Percent Auto 2.4 % (0-4.4); Hematocrit 46.3 % (42.0-52.0); Hemoglobin 15.3 g/dL (14.0-18.0); Immature Granulocyte Absolute 0.05 K/mm3 (0.00-0.031); Immature Granulocyte Percent A 0.5 % (0-0.5); Lymphocytes Absolute Auto 3.02 K/mm3 (0.9-3.2); Mean Corpuscular Hemoglobin 30.6 pg (26-34); Mean Corpuscular Volume 92.6 fl (80-100); Mean Platelet Volume 9.6 fl (7.4-10.4); Monocytes Absolute Auto 0.7 K/mm3 (0.1-0.6); Monocytes Percent Auto 7.4 % (2.6-8.5); Neutrophils Absolute Auto 5.7 K/mm3 (1.3-6.7); Neutrophils Percent Auto 58.5 % (45.5-73.1); Platelet Count Result 218 k/mm3 (150-375); Red Cell Distribution Width 12.7 % (11.5-14.5); White Blood Count 9.8 K/mm3 (4.5-10.0)
[2024-07-27 09:26] LABS: Alanine Aminotransferase 36 U/L (6-50); Albumin Level 4.2 g/dL (3.5-5.1); Alkaline Phosphatase 47 U/L (38-126); Anion Gap 6 mmol/L (4-12); Aspartate Amino Transferase 33 U/L (17-59); Bilirubin,Total 0.9 mg/dL (0.2-1.3); Blood Urea Nitrogen 10 mg/dL (9-20); Calcium 8.6 mg/dL (8.4-10.2); Carbon Dioxide 29 mmol/L (22-30); Chloride 103 mmol/L (98-107); Cholesterol 161 mg/dL (0-200); Estimated Glomerular Filt Rate > 60; Glucose 111 mg/dL (65-110); HDL Direct 28 mg/dL; Potassium 4.9 mmol/L (3.4-5.0); Sodium 138 mmol/L (137-145); Triglycerides 124 mg/dL (<150)
[2024-07-27 09:32] LABS: LDL Cholesterol Direct 107 mg/dL
== END 2024-07-27 08:34 | disposition home or self-care (01) ==
LOC: ANHLAB 08:38
PROVIDERS: PCP Emergency Medicine; Visit Provider Emergency Medicine
DX: E78.5 Hyperlipidemia, unspecified (principal); R53.83 Other fatigue; E55.9 Vitamin D deficiency, unspecified; I10 Essential (primary) hypertension
CPT/HCPCS: 36415; 80053; 80061; 82306; 84443; 85025

== ENCOUNTER 2024-10-24 01:30 | Emergency (ER) | payer OTHER, MEDICAID, SELFPAY ==
--- NOTE | ~2024-10-24 | CT_ITS ---
EXAMINATION: CT LE RT wo con DATE: 10/24/2024 05:34 INDICATION: Right knee pain TECHNIQUE: Computed tomography (CT) of the right knee was performed without intravenous contrast. The dose-length product was 1288.40 mGy-cm. Automated exposure control and iterative reconstruction technique were employed. COMPARISON: Right femur series dated 04/01/2021 FINDINGS: There is a curvilinear lucency anterior aspect of the tibial plateau, axial images 62-64, c onsistent with nondisplaced avulsion fracture there is a loose body in the joint space. Small joint e ffusion. No foreign bodies. No other fracture is seen. IMPRESSION: 1. Avulsion fracture tibial plateau anteriorly and centrally. 2: Small joint effusion. Reviewed, dictated and finalized at location A.
[2024-10-24 03:35] VITALS: BP 149/90; PULSE 84; RESP 17; TEMP 36.4; O2SAT 98
[2024-10-24 03:38] VITALS: BP 149/90; PULSE 84; RESP 17; TEMP 36.4; O2SAT 98
[2024-10-24] MEDS: KETOROLAC (*BKC) 60 MG/2 ML VIAL IM (04:45)
--- NOTE | 2024-10-24 05:07 | ED_ITS ---
HPI - Extremity Injury (Lower) General Chief Complaint: Extremity Injury, Lower Stated Complaint: R leg pain Time Seen by Provider: 10/24/24 03:24 History of Present Illness HPI Narrative: 29-year-old male presenting to the emergency department for over 1 month of right lower extremity pain. Patient states that he is having right knee pain and right leg pain. Denies any acute injuries. States that symptoms started around father's Day last month. States that hurts to ambulate and straighten his leg. Has been walking with a limp. Denies any traumatic injuries or falls. History of ankle surgery on the right lower extremity previously. Nothing recent. No new falls or injuries, no other symptoms such as groin pain, numbness, weakness in the limb. No fever, chills, chest pain, difficulty in breathing. Related Data Allergies Allergy/AdvReac Type Severity Reaction Status Date / Time Penicillins Allergy Intermediate hives Verified 10/24/24 03:44 Review of Systems Review of Systems: As reviewed above in the HPI [facility] Past Medical History Medical History Healthy adult male Surgical History Surgical History No history of previous surgery Family History Family History Father Stomach ulcer History of pancreatectomy Diabetes mellitus Hypertension Social History Social History Smoking status: Current every day smoker Tobacco type: cigarettes Alcohol intake: never Substance use: current Substance use type: marijuana Do You Feel Safe in your Home?: Yes Lack of Transportation: No Current Housing: I Have Housing Concerned About Future Housing: No Difficulty Paying Gas/Electric Bills: No Difficulty Paying for Meds: No Currently Unemployed: No Education: Don't Know Difficulty w/ Childcare or Family Care: No Gender identity (if verbalized by the patient): Male Exam Narrative: GENERAL: [Well-appearing, well-nourished, and in no acute distress.] HEAD: [Normocephalic, atraumatic.] EYES: [PERRLA and EOMI.] ENT: Nares clear, no rhinorrhea or epistaxis. Mucous membranes moist. NECK: Supple. CHEST: [Clear to auscultation. No respiratory distress.] HEART: [Regular rate and rhythm]. No murmur heard. [Normal peripheral pulses.] ABDOMEN: [Soft, nondistended], [nontender], [No rigidity or guarding] EXTREMITIES: Range of motion is restricted at the right knee and hip secondary to pain. No laxity with valgus or varus stress testing. No patellar effusions or suprapatellar effusions. Ankle plantar and dorsiflexion without any difficulty. Bearing weight on the right lower extremity reproduces pain going up to the hip. No pain in the back or spinal area. No asymmetry to the calves or any signs of DVT or any overlying skin changes/redness. 2+ dorsalis pedis and posterior tibialis pulses bilaterally. SKIN: Warm, dry, no rash. NEURO: No deficits, able to ambulate, EHL and FHL 5/5, no weakness in the lower extremity, no sensation changes. Alert and oriented [x3.] PSYCH: [Normal mood and affect.] Course Vital Signs Vital signs: Vital Signs Temperature 36.4 C 10/24/24 03:35 Pulse Rate 84 10/24/24 03:35 Respiratory Rate 17 10/24/24 03:35 Blood Pressure 149/90 H 10/24/24 03:35 Pulse Oximetry 98 10/24/24 03:35 Oxygen Delivery Room Air 10/24/24 03:35 Temperature 36.4 C 10/24/24 03:38 Pulse Rate 84 10/24/24 03:38 Respiratory Rate 17 10/24/24 03:38 Blood Pressure 149/90 H 10/24/24 03:38 Pulse Oximetry 98 10/24/24 03:38 Oxygen Delivery Room Air 10/24/24 03:35 MDM - Extremity Injury (Lower) MDM Narrative Medical decision making narrative: 29-year-old male presenting to the emergency department for over 1 month of right lower extremity pain. Patient states that he is having right knee pain and right leg pain. Denies any acute injuries. States that symptoms started around father's Day last month. States that hurts to ambulate and straighten his leg. Has been walking with a limp. Denies any traumatic injuries or falls. History of ankle surgery on the right lower extremity previously. Nothing recent. No new falls or injuries, no other symptoms such as groin pain, numbness, weakness in the limb. No fever, chills, chest pain, difficulty in breathing. Range of motion is restricted at the right knee and hip secondary to pain. No laxity with valgus or varus stress testing. No patellar effusions or suprapatellar effusions. Ankle plantar and dorsiflexion without any difficulty. Bearing weight on the right lower extremity reproduces pain going up to the hip. No pain in the back or spinal area. No asymmetry to the calves or any signs of DVT or any overlying skin changes/redness. 2+ dorsalis pedis and posterior tibialis pulses bilaterally. He is hemodynamically stable, no tac hycardia, fever, hypoxia. Given the chronic nature of the pain over 1 month unlikely any emergent pathology here specially with his overall well-being and normal state of health. He has no signs of any vascular compromise, no signs of DVT or asymmetry in the calves, no signs of traumatic injury. Patient offered pain medications but states that he does not want any needles or IVs. He does appear very uncomfortable especially when trying to bear weight. A CT of the right lower extremity was ordered for further evaluation given the vague nature of his symptoms and I do not believe x-rays will be able to identify any subtle pathology. Patient given 2 mg of p.o. Dilaudid while workup is underway. Patient had improvement after oral Dilaudid. CT scan shows avulsion fracture of the tibial plateau anteriorly and centrally with a small effusion. Patient re- evaluated and I discussed with him any potential injuries that happened he states he S that he did get hit in the knee by a trailer ball hit approximately that time that his symptoms started a month ago but nothing more recent. Patient is walking with a fractured tibial plateau since then which is causing him severe pain. Discussed the case with Dr. Alejandro person from Orthopedics and he will see him in clinic recommendations for knee immobilization, limiting ambulation as much as possible, pain control and to follow up with him. I discussed this with the patient and he was comfortable with the plan. Knee immobilizer was provided, crutches provided for ambulation assistance and discharge instructions with pain prescriptions provided. Medical Records Attestation: I reviewed the patient's medical records. Imaging Data Attestation: I personally reviewed and interpreted this imaging study as follows: My impression: Impressions Lower Extremity CT 10/24/24 06:08 IMPRESSION: 1. Avulsion fracture tibial plateau anteriorly and centrally. 2: Small joint effusion. Discharge Plan Discharge Clinical Impression: Closed fracture of tibial plateau with delayed healing Patient Disposition: Home Condition: Stable Instructions: Antibiotic Form, Avulsion Fracture (ED) Additional Instructions: You have an avulsion fracture of the tibial plateau of the right lower extremity which is causing severe pain and likely some damage to the internal structures and ligaments of the knee. You will follow-up with Dr. Javon unnes from Orthopedics and we have provided a referral and pain medications to take to get the pain under control. Wear the knee immobilizer for pain and swelling control and try to limit ambulation as much as possible with the assistance of crutches. Patient Language: Tongan Prescriptions: New ibuprofen 800 mg tablet 800 mg PO TID PRN (Reason: pain) Qty: 30 0RF methocarbamol 750 mg tablet 750 mg PO TID PRN (Reason: pain) Qty: 20 0RF lidocaine 5 % adhesive patch,medicated 1 patch topical DAILY Qty: 15 0RF Rx Instructions: leave on most painful area for up to 12 hrs oxycodone 5 mg tablet 5 mg PO Q8H PRN (Reason: pain) Qty: 14 0RF No Action bupropion HCl (smoking deter) 150 mg tablet extended release 12 hr 150 mg PO .COMPLEX Qty: 60 0RF Rx Instructions: 150 mg orally daily for Days 1-3 then increase to BID thereafter; Follow-up/Referrals: Pete Bledsoe MD [Primary Care Provider] - Emery Kennedy MD [Physician] - 2 Days (Tibial plateau fracture, chronic 1 month) Time of Disposition: 06:30
[2024-10-24] MEDS: HYDROmorphone HCL (*CRX) 2 MG TABLET PO (05:12)
== END 2024-10-24 06:51 | disposition home or self-care (01) ==
PROVIDERS: Emergency Provider Student in an Organized Health Care Education/Training Program; PCP Emergency Medicine
DX: S82.141A Displaced bicondylar fracture of right tibia, initial encounter for closed fracture (principal); X58.XXXA Exposure to other specified factors, initial encounter; F17.210 Nicotine dependence, cigarettes, uncomplicated
CPT/HCPCS: 73700; 96372; 99284; A9270; J1885